=== PATIENT | female | born 1985 | race Two or more races ===

== ENCOUNTER 2020-12-28 12:11 | Emergency (ER) | payer MEDICAID ==
[~2020-12-28] VITALS: Ht 165.1 cm; Wt 90.7 kg
[2020-12-28 12:11] VITALS: BP 134/93
[2020-12-28] MEDS ORDERED: oxyCODONE/APAP 5/325 MG 1 TAB TAB PO ONE (12:50)
[2020-12-28] MEDS ORDERED: MORPHINE SULFATE 4 MG/ML SYR ONE (15:03)
[2020-12-28] MEDS ORDERED: MORPHINE SULFATE 4 MG/ML SYR IM ONE ×2 (15:05→21:55)
[2020-12-29] MEDS ORDERED: oxyCODONE/APAP 5/325 MG 1 TAB TAB PO ONE (03:10)
[2020-12-29] MEDS ORDERED: KETOROLAC 30 MG/ML VIAL IM ONE (07:40)
[2020-12-29 09:50] VITALS: BP 102/74
== END 2020-12-29 09:50 | disposition home or self-care (01) ==
LOC: MED 12:11
DX: G89.29 Other chronic pain (principal); M79.10 Myalgia, unspecified site; M79.601 Pain in right arm
CPT/HCPCS: 96372; 99285; J1885; J2270

== ENCOUNTER 2021-01-04 06:29 | Emergency (ER) | payer MEDICAID ==
[~2021-01-04] VITALS: Ht 165.1 cm; Wt 90.7 kg
[2021-01-04 06:32] VITALS: BP 121/90
--- NOTE | 2021-01-04 06:32 | NUR ---
TO BED VIA W/C
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
[2021-01-04] MEDS ORDERED: MORPHINE SULFATE 4 MG/ML SYR IVP ONE ×2 (06:50→11:50)
[2021-01-04] MEDS ORDERED: NACL 0.9% 1,000 ML IV ONE (06:50)
[2021-01-04] MEDS ORDERED: ONDANSETRON 4 MG/2 ML VIAL IVP ONE ×2 (07:10→11:50)
--- NOTE | 2021-01-04 07:14 | NUR ---
Patient being evaluated by Dr. Bradley at bedside.
--- NOTE | 2021-01-04 07:23 | NUR ---
Unable to obtain IV access at this time, morphine medication handed to WENCESLAO Antunez day shift nurse.
--- NOTE | 2021-01-04 07:24 | NUR ---
Report given to WENCESLAO Antunez for transfer of care.
[2021-01-04] MEDS ORDERED: ALUMINUM HYD/MAG/SIMETHICONE 30 ML UDC PO ONE (07:40)
[2021-01-04 07:48] LABS: BASOPHILS % (AUTO) 0.5 % (0.0-2.0); EOSINOPHILS # (AUTO) 0.1 K/uL (0-0.4); EOSINOPHILS % (AUTO) 2.6 % (0.0-4.0); HEMATOCRIT 33.9 % (36-48); HEMOGLOBIN 11.3 g/dL (12.0-16.0); LYMPHOCYTES # (AUTO) 1.3 K/uL (2.5-16.5); LYMPHOCYTES % (AUTO) 23.4 % (20.5-51.1); MEAN CORPUSCULAR HEMOGLOBIN 30 pg (27-31); MEAN CORPUSCULAR HGB CONC 33 g/dL (33-37); MEAN CORPUSCULAR VOLUME 89.5 fL (80-94); MONOCYTES # (AUTO) 0.4 K/uL (0.8-1.0); NEUTROPHILS # (AUTO) 3.7 K/uL (1.8-7.7); NEUTROPHILS % (AUTO) 66.5 % (42.2-75.2); PLATELET COUNT (AUTO) 394 K/uL (140-450); RED BLOOD CELL COUNT(AUTO) 3.79 MIL/uL (4.20-5.40); RED CELL DISTRIBUTION WIDTH 14.3 % (11.6-13.7); WHITE BLOOD COUNT (AUTO) 5.6 K/uL (4.8-10.8)
[2021-01-04 08:02] LABS: ALBUMIN 3.1 g/dL (3.4-5.0); ANION GAP 8.8 (8-16); CREATININE 0.7 mg/dL (0.6-1.3); POTASSIUM 3.8 mmol/L (3.5-5.1); TOTAL BILIRUBIN 0.8 mg/dL (0.0-1.0)
--- NOTE | 2021-01-04 09:13 | NUR ---
PT UNABLE TO PROVIDE URINE AT THIS TIME
--- NOTE | 2021-01-04 09:59 | NUR ---
Dr. Bradley is evaluating the patient at bedside.
--- NOTE | 2021-01-04 10:30 | NUR ---
PT WAS PLACED ON A BEDPAN, WAS ABLE TO PROVIDE URINE SAMPLE, URINE WAS SENT TO LAB PER ORDER.
[2021-01-04 10:53] LABS: APPEARANCE,URINE HAZY (CLEAR); BILIRUBIN,URINE NEGATIVE (NEGATIVE); BLOOD, URINE TRACE-I (NEGATIVE); COLOR,URINE YELLOW (YELLOW); LEUKOCYTE ESTERASE ,URINE 2+ (NEGATIVE); NITRITE, URINE NEGATIVE (NEGATIVE); UGLUCOSE NEGATIVE (NEGATIVE)
[2021-01-04 11:07] LABS: WBC,URINE 16-25 (MOD) /HPF (0-5)
[2021-01-04 11:09] LABS: RBC,URINE 0-5 /HPF (0-5); TRICHOMONAS,URINE Few /HPF (None Seen)
[2021-01-04 11:10] LABS: URINE AMORPHOUS URATE 1+ /HPF (None Seen)
[2021-01-04] MEDS ORDERED: GABA-636 PO (11:36)
[2021-01-04] MEDS ORDERED: DOCU100C16 PO (11:36)
[2021-01-04] MEDS ORDERED: APIX2.5 PO (11:36)
[2021-01-04] MEDS ORDERED: ACET-5629 PO (11:36)
[2021-01-04] MEDS ORDERED: CYCL-654 PO (11:36)
--- NOTE | 2021-01-04 13:00 | NUR ---
PT REFUSED NG TUBE PLACEMENT. ERMD NOTIFIED.
--- NOTE | 2021-01-04 13:11 | NUR ---
Patient to be transferred to [facility] ER. Is being transferred due to HIGHER LEVEL OF CARE. Receiving facility has accepting physician and available space. ER physician has signed transfer form. Patient or responsible democrat has agreed to transfer and signed form. Patient belongings inventoried and will be sent with patient. Copy of nursing notes, lab reports, EKG, Physicians Orders and X-rays to be sent with patient. Report called to TARIK BILLY at receiving facility. [facility] ambulance service has been called for transfer. ETA is 60-90 MIN.
[2021-01-04] MEDS ORDERED: cefTRIAXone 1,000 MG VIAL ONE (13:13)
--- NOTE | 2021-01-04 13:59 | NUR ---
[facility] HERE FOR TRANSPORT, REPORT GIVEN.
[2021-01-04 14:00] VITALS: BP 125/80
== END 2021-01-04 13:59 ==
LOC: MED 06:29
DX: K56.690 Other partial intestinal obstruction (principal); N39.0 Urinary tract infection, site not specified; K64.9 Unspecified hemorrhoids; I82.220 Acute embolism and thrombosis of inferior vena cava; Z87.81 Personal history of (healed) traumatic fracture; Z20.822 Contact with and (suspected) exposure to COVID-19
CPT/HCPCS: 36415; 74177; 80053; 81001; 81025; 83690; 85025; 87086; 87426; 96361; 96365; 96375; 96376; 99291; J0696; J2270; J2405; J7030; Q9967

== ENCOUNTER 2021-02-16 02:48 | Emergency (ER) | payer MEDICAID ==
[~2021-02-16] VITALS: Ht 165.1 cm; Wt 90.7 kg
[~2021-02-16 02:48] MED LIST: ACET-5629 PO; APIX2.5 PO; CYCL-654 PO; DOCU100C16 PO; GABA-636 PO
[2021-02-16 02:50] VITALS: BP 134/88
--- NOTE | 2021-02-16 03:05 | NUR ---
BIBA TAKEN TO BED #12
--- NOTE | 2021-02-16 03:15 | NUR ---
BLOOD COLLECTED VIA IV START AND GIVEN TO PHLEB. JAYCE
[2021-02-16 03:52] LABS: BASOPHILS % (AUTO) 0.8 % (0.0-2.0); EOSINOPHILS # (AUTO) 0.3 K/uL (0-0.4); HEMATOCRIT 33.5 % (36-48); LYMPHOCYTES # (AUTO) 1.8 K/uL (2.5-16.5); LYMPHOCYTES % (AUTO) 33.6 % (20.5-51.1); MEAN CORPUSCULAR HEMOGLOBIN 28 pg (27-31); MEAN CORPUSCULAR HGB CONC 33 g/dL (33-37); MEAN CORPUSCULAR VOLUME 85.3 fL (80-94); MONOCYTES # (AUTO) 0.4 K/uL (0.8-1.0); MONOCYTES % (AUTO) 7.3 % (1.7-9.3); NEUTROPHILS # (AUTO) 2.9 K/uL (1.8-7.7); NEUTROPHILS % (AUTO) 53.3 % (42.2-75.2); PLATELET COUNT (AUTO) 369 K/uL (140-450); RED BLOOD CELL COUNT(AUTO) 3.92 MIL/uL (4.20-5.40); RED CELL DISTRIBUTION WIDTH 13.9 % (11.6-13.7); WHITE BLOOD COUNT (AUTO) 5.4 K/uL (4.8-10.8)
[2021-02-16 03:59] LABS: ALBUMIN 3.4 g/dL (3.4-5.0); CARBON DIOXIDE 28.7 mmol/L (21-32); CREATININE 0.6 mg/dL (0.6-1.3); POTASSIUM 3.7 mmol/L (3.5-5.1); TOTAL BILIRUBIN 0.6 mg/dL (0.0-1.0)
[2021-02-16 06:09] VITALS: BP 136/69
--- NOTE | 2021-02-16 06:09 | NUR ---
NAD at this time. pt appears asleep. arousable with light stimuli.
[2021-02-16 06:20] LABS: APPEARANCE,URINE CLEAR (CLEAR); BILIRUBIN,URINE NEGATIVE (NEGATIVE); BLOOD, URINE NEGATIVE (NEGATIVE); COLOR,URINE YELLOW (YELLOW); LEUKOCYTE ESTERASE ,URINE NEGATIVE (NEGATIVE); NITRITE, URINE NEGATIVE (NEGATIVE); PH,URINE 5.5 (5.0-9.0); UGLUCOSE NEGATIVE (NEGATIVE)
--- NOTE | 2021-02-16 06:58 | NUR ---
d/c with [facility]. d/c education given. opportunity to ask questionsgiven and answered. no rx given.
== END 2021-02-16 06:51 | disposition home or self-care (01) ==
LOC: MED 02:48
DX: R10.9 Unspecified abdominal pain (principal); Z79.899 Other long term (current) drug therapy; Z98.890 Other specified postprocedural states; V89.2XXA Person injured in unspecified motor-vehicle accident, traffic, initial encounter; Y93.89 Activity, other specified; Y92.89 Other specified places as the place of occurrence of the external cause; Y99.8 Other external cause status
CPT/HCPCS: 36415; 80053; 81003; 81025; 83690; 85025; 99284

== ENCOUNTER 2021-04-05 21:02 | Emergency (ER) | payer MEDICAID ==
[~2021-04-05] VITALS: Ht 152.4 cm; Wt 81.2 kg
[~2021-04-05 21:02] MED LIST changes: +DOCU-464 PO; -DOCU100C16 PO
[2021-04-05 21:17] VITALS: BP 144/97
--- NOTE | 2021-04-05 21:20 | NUR ---
PATIENT AMBUALTED TO RESTROOM WITH STEADY GAIT.
--- NOTE | 2021-04-05 21:25 | NUR ---
PT AMBULATED UNASSISTED FROM RESTROOM TO ER BED 06 WITH STEADY & EVEN GAIT
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
--- NOTE | 2021-04-05 22:13 | NUR ---
LAB DRAWS AT BEDSIDE.
[2021-04-05 22:23] LABS: BASOPHILS % (AUTO) 0.4 % (0.0-2.0); EOSINOPHILS # (AUTO) 0.4 K/uL (0-0.4); EOSINOPHILS % (AUTO) 4.2 % (0.0-4.0); HEMATOCRIT 29.6 % (36-48); HEMOGLOBIN 9.7 g/dL (12.0-16.0); LYMPHOCYTES # (AUTO) 1.7 K/uL (2.5-16.5); LYMPHOCYTES % (AUTO) 19.3 % (20.5-51.1); MEAN CORPUSCULAR HEMOGLOBIN 27 pg (27-31); MEAN CORPUSCULAR HGB CONC 33 g/dL (33-37); MEAN CORPUSCULAR VOLUME 81.2 fL (80-94); MONOCYTES # (AUTO) 0.5 K/uL (0.8-1.0); MONOCYTES % (AUTO) 5.9 % (1.7-9.3); NEUTROPHILS % (AUTO) 70.2 % (42.2-75.2); PLATELET COUNT (AUTO) 530 K/uL (140-450); RED BLOOD CELL COUNT(AUTO) 3.64 MIL/uL (4.20-5.40); RED CELL DISTRIBUTION WIDTH 14.5 % (11.6-13.7); WHITE BLOOD COUNT (AUTO) 8.5 K/uL (4.8-10.8)
[2021-04-05 22:31] LABS: ANION GAP 14.4 (8-16); CARBON DIOXIDE 26.4 mmol/L (21-32); CREATININE 0.6 mg/dL (0.6-1.3); POTASSIUM 3.8 mmol/L (3.5-5.1)
--- NOTE | 2021-04-05 23:00 | NUR ---
AT BEDSIDE EVALUATING PT.
--- NOTE | 2021-04-05 23:25 | NUR ---
Patient discharged with v/s stable. Written and verbal after care instructions given and explained. Patient verbalized understanding. Ambulatory with steady gait. All questions addressed prior to discharge. Advised to follow up with PMD.
[2021-04-05 23:35] VITALS: BP 144/97
== END 2021-04-05 23:25 | disposition home or self-care (01) ==
LOC: MED 21:02
DX: R60.0 Localized edema (principal); Z79.899 Other long term (current) drug therapy; Z98.890 Other specified postprocedural states
CPT/HCPCS: 36415; 80048; 81002; 81025; 85025; 99283

== ENCOUNTER 2021-08-30 04:40 | Emergency (ER) | payer MEDICAID, OTHER ==
[~2021-08-30] VITALS: Ht 165.1 cm; Wt 81.8 kg
[2021-08-30 04:46] VITALS: BP 134/83
--- NOTE | 2021-08-30 05:02 | NUR ---
PATIENT CAME TO ED DUE TO CELLULITIS OF THE FACE ALERT ORIENT NOT COMPLAINING OF PAIN VITALS SIGNS IN NORMAL LIMITS //DiCaprio RN
[2021-08-30] MEDS ORDERED: AMPICILLIN/SULBACTAM 3 GM in NACL 0.9% 100 ML IV ONE (06:00)
[2021-08-30] MEDS ORDERED: AMPICILLIN/SULBACTAM 3 GM VIAL ONE (06:29)
[2021-08-30] MEDS ORDERED: NACL 0.9% 1,000 ML IV ONE (07:25)
--- NOTE | 2021-08-30 07:30 | NUR ---
Report received from WENCESLAO Cordova. Transfer of care at this time.
--- NOTE | 2021-08-30 07:50 | NUR ---
PATIENT PROVIDED URINE SAMPLE, DIPPED AND TAKEN TO LAB.
--- NOTE | 2021-08-30 08:00 | NUR ---
PATIENT CONNECTED TO BEDSIDE MONITOR, PLACED IN CLEAN GOWN, SAFETY PRECAUTIONS PUT INTO PLACE.
--- NOTE | 2021-08-30 08:10 | NUR ---
DR. SHAY PERFORMING ULTRASOUND ON PATIENT FOR IV INSERTION.
--- NOTE | 2021-08-30 08:27 | NUR ---
pt taken to ct with technical instructor by wc
--- NOTE | 2021-08-30 08:37 | NUR ---
PT BACK FROM CT, PT PLACED BACK ON VS MONITOR
[2021-08-30 08:41] LABS: BARBITURATE, URINE NEGATIVE ng/ml (NEG <=200); BENZODIAZEPINE, URINE NEGATIVE ng/mL (NEG <=200); CANNABINOID, URINE NEGATIVE ng/mL (NEG <=50); COCAINE, URINE NEGATIVE ng/mL (NEG <=300); OPIATE, URINE NEGATIVE ng/mL (NEG <=2000); PHENCYCLIDINE SCREEN,URINE NEGATIVE ng/mL (NEG <=25)
[2021-08-30 09:05] LABS: BASOPHILS % (AUTO) 0.3 % (0.0-2.0); HEMATOCRIT 32.8 % (36-48); LYMPHOCYTES # (AUTO) 0.7 K/uL (2.5-16.5); LYMPHOCYTES % (AUTO) 24.1 % (20.5-51.1); MEAN CORPUSCULAR HEMOGLOBIN 27 pg (27-31); MEAN CORPUSCULAR HGB CONC 34 g/dL (33-37); MEAN CORPUSCULAR VOLUME 81.1 fL (80-94); MONOCYTES # (AUTO) 0.2 K/uL (0.8-1.0); MONOCYTES % (AUTO) 7.1 % (1.7-9.3); NEUTROPHILS # (AUTO) 2.1 K/uL (1.8-7.7); NEUTROPHILS % (AUTO) 68.5 % (42.2-75.2); PLATELET COUNT (AUTO) 197 K/uL (140-450); RED BLOOD CELL COUNT(AUTO) 4.04 MIL/uL (4.20-5.40); RED CELL DISTRIBUTION WIDTH 14.1 % (11.6-13.7); WHITE BLOOD COUNT (AUTO) 3.1 K/uL (4.8-10.8)
[2021-08-30 09:38] LABS: ALBUMIN 3.1 g/dL (3.4-5.0); ANION GAP 13.8 (8-16); CARBON DIOXIDE 22.5 mmol/L (21-32); CREATININE 0.7 mg/dL (0.6-1.3); POTASSIUM 3.3 mmol/L (3.5-5.1); TOTAL BILIRUBIN 0.5 mg/dL (0.0-1.0)
[2021-08-30] MEDS ORDERED: AMOX-1000 PO (09:39)
[2021-08-30] MEDS ORDERED: POTASSIUM CHLORIDE 10 MEQ TABER PO ONE (09:45)
[2021-08-30] MEDS ORDERED: MULTIVITAMIN 1 TAB PO ONE (09:45)
[2021-08-30 10:00] VITALS: BP 122/83
--- NOTE | 2021-08-31 10:57 | NUR ---
LATE ENTRY0 IV UNASYN DISCONTINUED AT 1038.
== END 2021-08-30 10:38 | disposition home or self-care (01) ==
LOC: MED 04:40
DX: K05.219 Aggressive periodontitis, localized, unspecified severity (principal); R22.0 Localized swelling, mass and lump, head; F15.90 Other stimulant use, unspecified, uncomplicated; N39.0 Urinary tract infection, site not specified; K12.2 Cellulitis and abscess of mouth; Z79.899 Other long term (current) drug therapy
CPT/HCPCS: 36415; 70487; 80053; 80305; 81002; 81025; 85025; 96365; 96366; 99285; J0295; J7030; Q9967; 96361

== ENCOUNTER 2023-04-24 14:45 | Inpatient (IN) | payer MEDICAID ==
[~2023-04-24] VITALS: Ht 165.1 cm; Wt 90.7 kg
[2023-04-24 14:45] VITALS: BP 137/101; PULSE 120; RESP 18; TEMP 98.8; O2SAT 98
[~2023-04-24 14:45] MED LIST changes: +AMOX-1000 PO
[2023-04-24] MEDS ORDERED: LACTATED RINGERS 1,000 ML IV SCH (15:30)
[2023-04-24 16:04] LABS: HEMATOCRIT 31.5 % (36-48); HEMOGLOBIN 10.2 g/dL (12.0-16.0); MEAN CORPUSCULAR HEMOGLOBIN 25 pg (27-31); MEAN CORPUSCULAR HGB CONC 33 g/dL (33-37); MEAN CORPUSCULAR VOLUME 77.4 fL (80-94); PLATELET COUNT (AUTO) 273 K/uL (140-450); RED BLOOD CELL COUNT(AUTO) 4.07 MIL/uL (4.20-5.40); RED CELL DISTRIBUTION WIDTH 12.9 % (11.6-13.7)
[2023-04-24 16:19] LABS: ALBUMIN 2.4 g/dL (3.4-5.0); ANION GAP 12.5 (8-16); CALCIUM 8.3 mg/dL (8.5-10.1); CARBON DIOXIDE 21.9 mmol/L (21-32); CREATININE 0.6 mg/dL (0.6-1.3); POTASSIUM 3.4 mmol/L (3.5-5.1); TOTAL BILIRUBIN 1.1 mg/dL (0.0-1.0); TOTAL PROTEIN, SERUM 7.8 g/dL (6.4-8.2)
[2023-04-24] MEDS ORDERED: AMPICILLIN 2,000 MG in NACL 0.9% 100 ML IV SCH (16:25)
[2023-04-24 16:37] LABS: APPEARANCE,URINE TURBID (CLEAR); BILIRUBIN,URINE 1+ (NEGATIVE); BLOOD, URINE 3+ (NEGATIVE); COLOR,URINE ORANGE (YELLOW); LEUKOCYTE ESTERASE ,URINE 3+ (NEGATIVE); NITRITE, URINE POSITIVE (NEGATIVE); PH,URINE 6.5 (5.0-9.0); PROTEIN,URINE 2+ (NEGATIVE); UGLUCOSE NEGATIVE (NEGATIVE)
[2023-04-24] MEDS ORDERED: AMPICILLIN 2,000 MG VIAL ONE (16:47)
[2023-04-24 16:55] LABS: AMPHETAMINE, URINE POSITIVE ng/ml (NEG <=1000); BACTERIA,URINE 2+ /HPF (None Seen); BARBITURATE, URINE NEGATIVE ng/ml (NEG <=200); BENZODIAZEPINE, URINE NEGATIVE ng/mL (NEG <=200); CANNABINOID, URINE POSITIVE ng/mL (NEG <=50); COCAINE, URINE NEGATIVE ng/mL (NEG <=300); ICTOTEST NEGATIVE (NEGATIVE); MUCUS,URINE 1+ /LPF (None Seen); OPIATE, URINE NEGATIVE ng/mL (NEG <=2000); PHENCYCLIDINE SCREEN,URINE NEGATIVE ng/mL (NEG <=25); RBC,URINE 80-100 /HPF (0-5); TRICHOMONAS,URINE None Seen /HPF (None Seen); WBC,URINE 80-100 /HPF (0-5); YEAST,URINE None Seen /HPF (None Seen)
[2023-04-24 17:42] LABS: LYMPHOCYTES % (MANUAL) 11 % (20-46); MONOCYTES % (MANUAL) 2 % (5-12)
[2023-04-24 17:43] LABS: PLATELET ESTIMATE ADEQUATE; SMUDGE CELLS FEW
[2023-04-24] MEDS ORDERED: MAG SULF 20 GM/H2O PREMIX DRIP 500 ML IV SCH (18:00)
[2023-04-24] MEDS ORDERED: MAG SULF 20 GM/H2O PREMIX DRIP 500 ML IV ONE (18:11)
[2023-04-24] MEDS ORDERED: BETAMETH ACET/BETAMETH NA PH 30 MG/5 ML VIAL IM ONE ×2 (19:13→19:15)
== END 2023-04-24 20:07 | disposition short-term general hospital (02) | DRG 566 ==
LOC: MLD 14:45 → UNDOADMIN 14:45 → MLD 18:25 → UNDODISIN 20:07
PROVIDERS: ADMIT Obstetrics & Gynecology; ATTEND Obstetrics & Gynecology
DX: O42.913 Preterm premature rupture of membranes, unspecified as to length of time between rupture and onset of labor, third trimester (principal); O14.93 Unspecified pre-eclampsia, third trimester; O99.323 Drug use complicating pregnancy, third trimester; O16.3 Unspecified maternal hypertension, third trimester; Z20.822 Contact with and (suspected) exposure to COVID-19; Z3A.33 33 weeks gestation of pregnancy; O99.013 Anemia complicating pregnancy, third trimester
CPT/HCPCS: 36415; 76805; 80053; 80305; 81001; 85025; 86592; 86762; 86886; 86900; 86901; 87086; 87340; 87653-90; J0290; J0702; J3475; J7120